=== PATIENT | female | born 1960 | race African-American/Black ===

== ENCOUNTER 2024-01-30 11:12 | Emergency (ER) | payer MEDICAID ==
[~2024-01-30] VITALS: Ht 149.9 cm; Wt 52.0 kg
[2024-01-30 11:25] VITALS: TEMP 98.1; O2SAT 100
[2024-01-30 12:23] LABS: BASOPHILS % 1.6 % (0.0-2.0); EOSINOPHILS % 0.7 % (0.0-5.0); HEMATOCRIT. 36.1 % (36.0-48.0); HEMOGLOBIN. 11.6 g/dL (12.0-16.0); LYMPHOCYTES % 13.1 % (20.0-50.0); MEAN CORPUSCULAR HGB CONC 32.1 g/dL (31.0-37.0); MEAN CORPUSCULAR VOLUME 87.3 fL (81.0-99.0); MEAN PLATELET VOLUME 7.6 fl (7.4-10.4); MONOCYTES % 4.5 % (2.0-8.0); NEUTROPHILS % 80.1 % (40.0-76.0); PLATELET 519 x1000/uL (130-400); RED BLOOD CELL COUNT 4.13 mill/uL (4.2-5.4); RED CELL DISTRIBUTION WIDTH 20.9 % (11.6-14.6); WHITE BLOOD COUNT 6.4 x1000/uL (4.5-11.0)
[2024-01-30 12:39] LABS: ALANINE AMINOTRANSFERASE 39 IU/L (10-49); ALBUMIN 4.9 g/dL (3.2-4.8); ASPARTATE AMINOTRANSFERASE 57 IU/L (<34); BILIRUBIN TOTAL 1.1 mg/dL (0.1-1.0); CALCIUM 9.4 mg/dL (8.7-10.4); CARBON DIOXIDE 24 mEq/L (21-32); CHLORIDE 100 mEq/L (98-107); CREATININE 0.8 mg/dL (0.6-1.0); GLUCOSE 99 mg/dL (70-105); POTASSIUM 3.2 mEq/L (3.5-5.1); PROTEIN TOTAL 7.9 g/dL (6.0-8.3); SODIUM 137 mEq/L (136-145); TROPONIN I HIGH SENSITIVITY 7 ng/L (3.0-34); UREA NITROGEN BLOOD 7 mg/dL (9-23)
[2024-01-30] MEDS: ACETAMINOPHEN 500MG TABLET PO NR (13:26)
[2024-01-30] MEDS: CYCLOBENZAPRINE 10MG TABLET PO SCH (13:32)
[2024-01-30] MEDS: POTASSIUM CHLORIDE 20MEQ/PACKET PO NR (13:32)
[2024-01-30 14:00] VITALS: BP 178/92; PULSE 68; RESP 20
== END 2024-01-30 14:28 | disposition left against medical advice (07) ==
LOC: ER 11:12
DX: R07.89 Other chest pain (principal); I10 Essential (primary) hypertension; Z88.1 Allergy status to other antibiotic agents; Z98.890 Other specified postprocedural states; Z86.59 Personal history of other mental and behavioral disorders
CPT/HCPCS: 80053; 85025; 84484; 36415; 71045; 93005; 99285; Z7610 ×2